=== PATIENT | male | born 1970 | race African-American/Black ===

== ENCOUNTER 2018-10-06 13:31 | Emergency (ER) | payer MEDICAID ==
[~2018-10-06] VITALS: Ht 177.8 cm; Wt 90.7 kg
[2018-10-06 14:19] VITALS: BP 125/80
[2018-10-06] MEDS ORDERED: TETANUS-DIPTH-ACEL PERTUSSIS 0.5ML SYRG IM ONE (15:00)
== END 2018-10-06 15:17 | disposition home or self-care (01) ==
LOC: ER 13:36
DX: S51.842A Puncture wound with foreign body of left forearm, initial encounter (principal); J44.9 Chronic obstructive pulmonary disease, unspecified; I10 Essential (primary) hypertension; W22.8XXA Striking against or struck by other objects, initial encounter; Y93.89 Activity, other specified; Y99.8 Other external cause status; Y92.89 Other specified places as the place of occurrence of the external cause
CPT/HCPCS: 73090; 90471; 90715

== ENCOUNTER 2019-06-04 19:54 | Emergency (ER) | payer MEDICAID ==
[~2019-06-04] VITALS: Ht 177.8 cm; Wt 93.0 kg
[2019-06-04 23:32] VITALS: BP 163/99
== END 2019-06-05 00:06 | disposition home or self-care (01) ==
LOC: ER 19:54
DX: L60.0 Ingrowing nail (principal); J44.9 Chronic obstructive pulmonary disease, unspecified; I10 Essential (primary) hypertension
CPT/HCPCS: 11730; 73660